=== PATIENT | female | born 1945 | race Caucasian/White ===

== ENCOUNTER 2017-04-21 21:11 | Emergency (ER) | payer OTHER ==
[~2017-04-21] VITALS: Ht 160 cm; Wt 58.5 kg
[2017-04-21 21:15] VITALS: BP 151/78; PULSE 93; RESP 16; TEMP 97.2; O2SAT 98
[2017-04-21 22:38] VITALS: BP 141/75; PULSE 80; RESP 18; O2SAT 100
[2017-04-21] MEDS ORDERED: OMEP20TA93 PO (22:45)
[2017-04-21] MEDS ORDERED: CLON1 PO (22:45)
[2017-04-21] MEDS ORDERED: AMLO5TAB2 PO (22:45)
[2017-04-21] MEDS ORDERED: PAME50CA PO (22:47)
[2017-04-21] MEDS ORDERED: SIMV10TA PO (22:47)
[2017-04-21] MEDS ORDERED: OXYC-392 PO (22:50)
[2017-04-21] MEDS ORDERED: NEUR600T PO (22:50)
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
[2017-04-21] MEDS ORDERED: IBUPROFEN 600 MG TAB PO ONE (23:30)
[2017-04-21] MEDS ORDERED: [UNRECOGNIZED DRUG - CODE] PO (23:38)
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
[2017-04-22] MEDS ORDERED: DIAZ2 PO (02:06)
[2017-04-22] MEDS ORDERED: NORC5TAB PO (02:06)
[2017-04-22] MEDS ORDERED: DIAZEPAM 5 MG TAB PO ONE (02:30)
[2017-04-22 02:38] VITALS: BP 119/67; PULSE 76; RESP 18; O2SAT 97
== END 2017-04-22 02:39 | disposition home or self-care (01) ==
LOC: NEPE 21:11
DX: S80.01XA Contusion of right knee, initial encounter (principal); M62.830 Muscle spasm of back; V49.49XA Driver injured in collision with other motor vehicles in traffic accident, initial encounter; Y92.410 Unspecified street and highway as the place of occurrence of the external cause
CPT/HCPCS: 70450; 71250; 72125; 73030; 73564; 99285